=== PATIENT | female | born 1980 | race Caucasian/White ===

== ENCOUNTER → 2019-11-27 | Outpatient (CLI) | payer BC ==
--- NOTE | 2019-11-27 13:00 | XR ---
EXAMINATION TYPE: XR shoulder complete LT DATE OF EXAM: 11/27/2019 COMPARISON: NONE HISTORY: Pain TECHNIQUE: Three views are submitted. FINDINGS: There is mixed sclerosis and lucency involving the humeral head. Appears to be a linear lucency sugge stive of fracture. Right lung field and rib cage intact. Mild hypertrophic change of the AC joint. IMPRESSION: 1. Marked abnormal appearance of the humeral head. Mixed lucency and sclerosis seen. Recommend MRI to assess for chronic fracture. Osteonecrosis not excluded. MRI recommended.
== END | disposition home or self-care (01) ==
LOC: RADXRMAIN 12:17
PROVIDERS: ATTEND Family Medicine
DX: R93.7 Abnormal findings on diagnostic imaging of other parts of musculoskeletal system (principal); M25.812 Other specified joint disorders, left shoulder

== ENCOUNTER → 2019-12-23 | Outpatient (CLI) | payer BC ==
--- NOTE | 2019-12-25 03:19 | MR ---
EXAMINATION TYPE: MR shoulder LT wo con DATE OF EXAM: 12/23/2019 COMPARISON: None HISTORY: Lt shoulder pain Multiplanar multiecho imaging of the left shoulder was performed without contrast. There is moderate shoulder joint effusion. There is fluid around the biceps tendon. The anterior post erior glenoid rand appear intact. There is some narrowing of the shoulder joint space. There is spur ring on the humeral head. There is patchy abnormal mixed signal in the superior aspect of the humeral head consistent with some chronic avascular necrosis. This area measures 2.2 x 1.6 cm. There is mild narrowing of the subacromial joint space. There is increased signal in the supraspinatu s tendon over the superior aspect of the humeral head consistent with a full-thickness tear. There is no retraction of the tendon. The scapula appears intact. Subscapularis tendon is intact. 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 Osteoarthritic changes at the glenohumeral joint. Full-thickness tear of the supraspinatus tendon without retraction. Shoulder joint effusion.
== END | disposition home or self-care (01) ==
LOC: RADMRIMAIN 09:25
PROVIDERS: ATTEND Physician Assistant Medical
DX: S46.812A Strain of other muscles, fascia and tendons at shoulder and upper arm level, left arm, initial encounter (principal); M87.822 Other osteonecrosis, left humerus; M19.012 Primary osteoarthritis, left shoulder

== ENCOUNTER 2020-02-20 09:15 | Day surgery (SDC) | payer BC ==
[2020-02-19 09:20] VITALS: BMI 35.9
[~2020-02-20 09:15] MED LIST: LACTATED RINGERS 1,000 ML IV SCH; LIDOCAINE 1% (10MG/ML) FOR IV START INTRADERMA PRN
[2020-02-20 09:50] VITALS: TEMP 97.1
[2020-02-20] MEDS ORDERED: PROPOFOL 10 MG/ML 20 ML VIAL IV ONE (10:39)
[2020-02-20 11:08] VITALS: RESP 17
--- NOTE | 2020-02-20 11:12 | P.PCN ---
Date of Procedure: 02/20/20 Description of Procedure: BRIEF HISTORY: Patient is a 39-year-old with a long-standing history of gastroesophageal reflux disease presenting for outpatient EGD for evaluation of GERD. Patient has been on multiple medications in the past including PPI, H2 ondina Reglan. Currently she is been started on omeprazole daily. She has some improvement of reflux on this regimen. PROCEDURE PERFORMED: Esophagogastroduodenoscopy with biopsy. PREOPERATIVE DIAGNOSIS: GERD. ESTIMATED BLOOD LOSS: Minimal. IV sedation per anesthesia. PROCEDURE: After informed consent was obtained, the patient was brought into the endoscopy unit. IV sedation was administered by Anesthesia under continuous monitoring. Initially the Olympus GIF-190 video endoscope was inserted into the mouth. Esophagus intubated without any difficulty. It was gradually advanced into the stomach and duodenum and carefully examined. The bulb and the second part of the duodenum appeared normal, with biopsies taken. The scope at this time was withdrawn to the stomach, adequately insufflated with air, and upon careful examination, mucosa of the antrum, body, cardia and the fundus appeared normal, except for some mild scattered erythema in antrum and body suggestive of mild gastritis with biopsies taken. The scope was then withdrawn into the esophagus. The GE junction was located at 37 cm from the incisors. The esophagus appeared normal, with mid esophageal biopsies taken. There were no erosions or ulcer ations seen and the patient tolerated the procedure well. IMPRESSION: 1. Mild gastritis. 2. Biopsies of duodenum, antrum and body, GE junction and mid esophagus. RECOMMENDATIONS: The findings of this examination were discussed with the patient . Okay to resume diet. Continue PPI therapy. Await pathology from biopsies. Follow up in GI clinic as previously scheduled.
[2020-02-20 11:17] VITALS: BP 121/85; PULSE 83
[2020-02-20] MEDS ORDERED: ONDANSETRON 4 MG/2 ML VIAL IVP PRN (20:07)
[2020-02-20] MEDS ORDERED: MIDAZOLAM 2 MG/2 ML VIAL IV PRN (20:07)
[2020-02-20] MEDS ORDERED: fentaNYL (PF) 50 MCG/ML 2 ML AMP IV PRN (20:07)
[2020-02-20] MEDS ORDERED: LACTATED RINGERS 1,000 ML IV SCH (20:15)
== END 2020-02-20 11:46 | disposition home or self-care (01) ==
LOC: ORWHC2ENDO 09:15
PROVIDERS: ATTEND Internal Medicine
DX: K29.50 Unspecified chronic gastritis without bleeding (principal); K21.00 Gastro-esophageal reflux disease with esophagitis, without bleeding; F17.210 Nicotine dependence, cigarettes, uncomplicated; E66.9 Obesity, unspecified; Z88.0 Allergy status to penicillin; Z79.899 Other long term (current) drug therapy; Z98.890 Other specified postprocedural states; Z68.36 Body mass index [BMI] 36.0-36.9, adult
CPT/HCPCS: 81025; 88305; 43239; J2704

== ENCOUNTER → 2020-03-25 | Outpatient (CLI) | payer BC ==
--- NOTE | 2020-03-25 10:42 | MM ---
Reason for exam: clinical finding. Baseline mammogram. History: Patient is nulliparous. Took hormonal contraceptives for 1 year beginning at age 20. Physical Findings: Nurse did not find any significant physical abnormalities on exam. MG Diagnostic Mammo w CAD MINNIE Bilateral CC and MLO view(s) were taken. The breast tissue is heterogeneously dense. This may lower the sensitivity of mammography. Palpable marker right 10 o'clock minimal posterior dermal calcifications bilaterally. Central anterior asymmetric density right MLO view appears similar on lateral but appears to disperse on spot MLO. These results were verbally communicated with the patient and result sheet given to the patient on 03/25/20. ASSESSMENT: Incomplete: need additional imaging evaluation, BI-RAD 0 RECOMMENDATION: Ultrasound of the right breast.
--- NOTE | 2020-03-25 10:44 | USB ---
Reason for exam: additional evaluation requested from abnormal screening. History: Patient is nulliparous. Took hormonal contraceptives for 1 year beginning at age 20. US Breast RT Right complete breast ultrasound includes all four quadrants, the retroareolar region and axilla. Finding demonstrates no cystic or solid lesion seen. No abnormality at the upper outer quadrant site of patient palpated abnormality. 6 month follow up mammofram recommended as a precautionary measure. These results were verbally communicated with the patient and result sheet given to the patient on 03/25/20. ASSESSMENT: Probably benign, BI-RAD 3 RECOMMENDATION: Follow-up diagnostic mammogram of the right breast in 6 months. Manage on a clinical basis with regard to any suspicious palpable areas.
== END | disposition home or self-care (01) ==
LOC: RADMAMWWP 08:58
PROVIDERS: ATTEND Family Medicine
DX: R92.8 Other abnormal and inconclusive findings on diagnostic imaging of breast (principal); N63.11 Unspecified lump in the right breast, upper outer quadrant
CPT/HCPCS: 77066

== ENCOUNTER → 2020-10-16 | Outpatient (CLI) | payer BC ==
--- NOTE | 2020-10-17 08:27 | MM ---
Reason for exam: additional evaluation requested from prior study. Last mammogram was performed 7 months ago. History: Patient is nulliparous. Took hormonal contraceptives for 1 year beginning at age 20. Physical Findings: Nurse did not find any significant physical abnormalities on exam. MG 3D Diag Mammo W/Cad RT CC and MLO view(s) were taken of the right breast. Prior study comparison: March 25, 2020, bilateral MG diagnostic mammo w CAD MINNIE. The breast tissue is heterogeneously dense. This may lower the sensitivity of mammography. Clinical follow up right palpable. These results were verbally communicated with the patient and result sheet given to the patient on 10/16/20. ASSESSMENT: Negative, BI-RAD 1 RECOMMENDATION: Routine screening mammogram of both breasts at age 42. Manage patient on a clinical basis.
== END | disposition home or self-care (01) ==
LOC: RADMAMWWP 14:45
PROVIDERS: ATTEND Family Medicine
DX: R92.2 Inconclusive mammogram (principal)
CPT/HCPCS: 77061; 77065

== ENCOUNTER → 2023-01-28 | Outpatient (CLI) | payer OTHER ==
--- NOTE | 2023-01-29 20:53 | MM ---
Reason for Exam: Screening (asymptomatic). Last mammogram was performed 2 year(s) and 11 month(s) ago. Patient History: Menarche at age 13. Patient has no children. Hormonal Contraceptives for 1 year from age 20 until age 21. Last menstrual period: Risk Values: Suma 5 year model risk: 0.7%. NCI Lifetime model risk: 12.1%. Prior Study Comparison: 03/25/2020 Bilateral Diagnostic Mammogram, [facility]. 10/16/2020 Right Diagnostic Mammogram, [facility]. Tissue Density: The breast tissue is heterogeneously dense. This may lower the sensitivity of mammography. Findings: Analyzed By CAD. Chronic nodularity medial left breast. There is no suspicious group of microcalcifications or new suspicious mass in either breast. Overall Assessment: Benign, BI-RAD 2 Management: Screening Mammogram of both breasts in 1 year. . Patient should continue monthly self-breast exams. A clinical breast exam by your physician is recommended on an annual basis. This exam should not preclude additional follow-up of suspicious palpable abnormalities. Note on Suma scores and lifetime risk: 1. A Suma score greater than 3% is considered moderate risk. If this is the case, consider specialist referral to assess eligibility for a risk reducing agent. 2. If overall lifetime risk for the development of breast cancer is 20% or higher, the patient may qualify for future screening with alternating mammogram and breast MRI. Electronically signed and approved by: Jay Jimenez M.D. Radiologist
== END | disposition home or self-care (01) ==
LOC: RADMAMWWP 11:23
PROVIDERS: ATTEND Obstetrics & Gynecology
DX: Z12.31 Encounter for screening mammogram for malignant neoplasm of breast (principal)
CPT/HCPCS: 77063; 77067